=== PATIENT | female | born 1930 | race Caucasian/White ===

== ENCOUNTER → 2017-07-16 | Outpatient (CLI) | payer MEDICARE, OTHER ==
[2017-07-16] MEDS: REGADENOSON 0.4 MG/5 ML DISP.SYRIN. IV (09:45)
== END | disposition home or self-care (01) ==
LOC: NM 08:49
DX: I08.3 Combined rheumatic disorders of mitral, aortic and tricuspid valves (principal); I27.20 Pulmonary hypertension, unspecified; R07.89 Other chest pain; R60.0 Localized edema
CPT/HCPCS: 78452; 93017; 93306; 96374; 96375; 96376; A9500; J2785

== ENCOUNTER → 2018-04-07 | Outpatient (CLI) | payer MEDICARE, OTHER ==
[~2018-04-07] MED LIST: ALBUTEROL SULFATE 2.5 MG/3 ML NEBU. NEB ONE
--- NOTE | 2018-04-09 10:34 | RESP ---
DATE OF SERVICE: 04/07/2018 ATTENDING PHYSICIAN: Dr. Kirkpatrick. The patient's FVC was 2.18, which is 86% predicted, FEV1 1.2, which is 65% predicted. The FEV1/FVC ratio was reduced. There was excellent response to bronchodilators with 17% improvement in FVC and 14% improvement in FEV1. Lung volume showed increased total lung capacity of 160% predicted and increased residual volume. Diffusion capacity was increased. IMPRESSION: 1. Moderate obstructive airway disease with excellent response to bronchodilators. 2. Lung volumes consistent with air trapping and hyperinflation. 3. Increased diffusion capacity. JOSE MARTIN SOSA MD DR: ROBBIE/kristina JOB#: [id number] / [id number]
== END | disposition home or self-care (01) ==
LOC: PF 07:23
PROVIDERS: ATTEND Internal Medicine
DX: J44.9 Chronic obstructive pulmonary disease, unspecified (principal)
CPT/HCPCS: 94060; 94640; 94729; J7613

== ENCOUNTER → 2018-05-07 | Outpatient (CLI) | payer MEDICARE, OTHER ==
[~2018-05-07] MED LIST changes: -ALBUTEROL SULFATE 2.5 MG/3 ML NEBU. NEB ONE; +ASPI325T8 PO; +ATOR10TA60 PO; +CHOL2000 PO; +CLOP75TA PO; +GARL100T2 PO; +LEVO112T4 PO; +LISI2.5T PO; +METF500T3 PO; +MULT-658 PO
--- NOTE | 2018-05-07 14:37 | RAD ---
PET/CT imaging from the skull through the midthigh History: 1.1 cm lung nodule within the right lower lobe seen on recent chest CT. Comparison: Chest CT performed at [facility] dated March 31, 2018. Technique: PET examination was performed from the skull base to the proximal thighs after intravenous administration of 14.3 mCi Fluorine [address] scan was performed for the purposes of localization and attenuation, not for primary diagnosis. Blood glucose level at time of injection was 110 mg/dl. PQRS Compliance Statement: One or more of the following individualized dose reduction techniques were utilized for this examination: 1. Automated exposure control 2. Adjustment of the mA and/or kV according to patient size 3. Use of iterative reconstruction technique Findings: Head and neck: The thyroid gland is diffusely enlarged with a max SUV of 21.3. Right lobe extends all with to the submandibular region just posterior to the right submandibular salivary gland. The left lobe extends down into the anterior mediastinum and extends posteriorly into the posterior mediastinum and displaces the esophagus and trachea towards the right side. Normal physiologic activity is seen elsewhere. Chest: There is a 10 mm aorticopulmonary window lymph node which demonstrates max SUV of 4.7. There is superior left hilar hypermetabolic activity with a max SUV of 6.0. This area is difficult to evaluate without contrast. This is adjacent to the left upper lobe bronchus. There is right hilar activity with a maximum SUV is 3.9. This may be due to a lymph node here although it is difficult to identify without contrast. There is a 1.5 cm irregular nodule of the medial basal segment of the right lower lobe inferiorly which corresponds to the CT finding seen on the outside CT. No hypermetabolic activity is seen here. Maximum SUV is 1.8. Abdomen and pelvis: The urinary bladder is significantly distended. Diverticula of the urinary bladder evident. There is normal physiologic activity within both upper urinary tracts. The left upper urinary tract is dilated which may be due to the distended urinary bladder. Physiologic activity is seen within the third portion of the duodenum. There is diffuse physiologic activity within the bowel. More prominent segmental activity is seen involving the distal sigmoid colon and entire rectum with a maximum SUV of 11.5. Small distal abdominal aortic aneurysm is seen measuring 3.4 cm in greatest caliber. Musculoskeletal: No lytic process is seen. No hypermetabolic activity is evident. IMPRESSION: 1.5 cm irregular nodule of the medial basal segment of the right lower lobe is not hypermetabolic. Maximum SUV is 1.8. Therefore, this finding may be followed with a chest CT in 6 months to ensure stability. The thyroid gland is diffusely enlarged extending all with to the submandibular region on the right side and the mediastinum on the left side with a diffuse maximum SUV of 21.3. This may be seen with subacute thyroiditis or hyperthyroidism. This may be seen with anaplastic thyroid carcinoma but again this is diffusely involving the entire thyroid gland on both sides rather than a focal masslike activity. Correlation with thyroid function tests is recommended. This does displace the trachea and esophagus towards the right side. Hypermetabolic activity is seen within both laura and within a lymph node of the aorta pulmonary window. The clinical significance of this is uncertain at this point in time. Significantly enlarged urinary bladder. Left-sided hydronephrosis and hydroureter is seen most likely secondary to urinary bladder distention. Urinary bladder diverticuli are present. There is diffuse segmental hypermetabolic activity involving the distal sigmoid colon and the entire rectum with a maximum SUV of 11.5. This could be physiologic in nature but could be seen with a colitis as well. Clinical correlation is recommended. Small distal abdominal aortic aneurysm measuring 3.4 cm.
== END | disposition home or self-care (01) ==
LOC: PETSC 10:53
PROVIDERS: ATTEND Family Medicine
DX: R91.1 Solitary pulmonary nodule (principal); N13.39 Other hydronephrosis; N13.4 Hydroureter; I71.4 Abdominal aortic aneurysm, without rupture; N32.89 Other specified disorders of bladder; N32.3 Diverticulum of bladder
CPT/HCPCS: 78815; A9552

== ENCOUNTER 2018-06-29 06:47 | Outpatient (CLI) | payer MEDICARE, OTHER ==
[~2018-06-29] VITALS: Ht 167.6 cm; Wt 113.4 kg
[2018-06-29] VITALS (9 sets, daily range): BP systolic 127–190; BP diastolic 53–92
[2018-06-29] MEDS ORDERED: IODIXANOL 320 MG/ML 100 ML VIAL. ONE ×2 (07:40→09:27)
[2018-06-29] MEDS ORDERED: LIDOCAINE 1% PF 2 ML VIAL. ONE (07:40)
[2018-06-29 07:49] LABS: HEMATOCRIT 35.4 % (36.0-47.0); HEMOGLOBIN 11.6 g/dL (12.0-15.5); RED BLOOD COUNT 3.63 x10^6/uL (3.50-5.40); RED CELL DISTRIBUTION WIDTH 14.9 % (11.5-14.5)
[2018-06-29] MEDS ORDERED: METF500T3 PO (07:49)
[2018-06-29] MEDS ORDERED: GARL100T2 PO (07:49)
[2018-06-29] MEDS ORDERED: ATOR10TA60 PO (07:49)
[2018-06-29] MEDS ORDERED: CHOL2000 PO (07:49)
[2018-06-29] MEDS ORDERED: MULT-658 PO (07:49)
[2018-06-29] MEDS ORDERED: LISI2.5T PO (07:49)
[2018-06-29] MEDS ORDERED: ASPI325T8 PO (07:49)
[2018-06-29] MEDS ORDERED: LEVO112T4 PO (07:49)
[2018-06-29 07:53] LABS: CALCIUM 9.6 mg/dL (8.5-10.1); CREATININE 0.8 mg/dL (0.6-1.0); POTASSIUM 4.1 mmol/L (3.5-5.1)
[2018-06-29 07:59] LABS: PROTHROMBIN TIME PATIENT 13.1 SEC (11.7-14.0)
[2018-06-29] MEDS ORDERED: VERAPAMIL 5 MG/2 ML VIAL. ONE (08:41)
[2018-06-29] MEDS ORDERED: MIDAZOLAM HCL/PF 2 MG/2 ML VIAL. ONE (08:41)
[2018-06-29] MEDS ORDERED: HEPARIN for IV BOLUS 10,000 UNIT/10 ML VIAL. ONE (08:41)
[2018-06-29] MEDS ORDERED: fentaNYL PF VIAL 100 MCG/2 ML VIAL ONE (08:41)
[2018-06-29] MEDS ORDERED: NITROGLYCERIN 200 MCG/2 ML SYRINGE FOR CATH/VASC LAB. ONE (08:42)
[2018-06-29] MEDS ORDERED: BIVALIRUDIN 250 MG VIAL. IV ONE ×2 (09:17→09:45)
[2018-06-29] MEDS ORDERED: IV 1/2 NORMAL SALINE 1,000 ML IV SCH (09:42)
--- NOTE | 2018-06-29 09:42 | PDOC ---
MODERATE SEDATION ASSESSMENT RISKS/ALTERNATIVES Risks/Alternatives Risks and alternatives of this type of sedation and procedure discussed with: RISK/ALTERNATIVES: Patient H & P ON CHART H & P H & P on chart and reviewed for co-morbid conditions and appropriate labs. H&P ON CHART: Yes STATUS PREG STATUS ASSESSED: N/A MEDS/ALLERGIES REVIEWED Meds/Allergies Reviewed Medications and Allergies including time and route of recently administered narcotics and sedatives. MEDS/ALLERGIES REVIEWED: Yes ASA RATING ASA RATING: III AIRWAY ASSESSMENT Airway Assessment Airway patency, oral function limitations, presence of caps, crowns, dentures, partials, and ability to extend neck assessed. AIRWAY ASSESSMENT: Yes MALLAMPATI SCORE MALLAMPATI SCORE: II PRE-SEDATION ASSESSMENT PRE-SEDATION ASSESSMENT: Yes JAKE ROCHA MD Jun 29, 2018 09:42
[2018-06-29] MEDS ORDERED: NITROGLYCERIN SUBLINGUAL 0.4 MG BOTTLE OF 25. SL PRN (09:45)
[2018-06-29] MEDS ORDERED: HEPARIN for IV BOLUS 10,000 UNIT/10 ML VIAL. IV ONE (09:45)
[2018-06-29] MEDS ORDERED: fentaNYL PF VIAL 100 MCG/2 ML VIAL IV ONE (09:45)
[2018-06-29] MEDS ORDERED: ASPIRIN 325 MG TABLET PO ONE (09:45)
[2018-06-29] MEDS ORDERED: LIDOCAINE 1% PF 2 ML VIAL. INJ ONE (09:45)
[2018-06-29] MEDS ORDERED: NITROGLYCERIN 200 MCG/2 ML SYRINGE FOR CATH/VASC LAB. IART ONE (09:45)
[2018-06-29] MEDS ORDERED: HEPARIN for IV BOLUS 10,000 UNIT/10 ML VIAL. IART ONE (09:45)
[2018-06-29] MEDS ORDERED: ACETAMINOPHEN 325 MG TABLET. PO PRN (09:45)
[2018-06-29] MEDS ORDERED: VERAPAMIL 5 MG/2 ML VIAL. IART ONE (09:45)
[2018-06-29] MEDS ORDERED: CLOPIDOGREL BISULFATE 75 MG TABLET PO ONE (09:45)
[2018-06-29] MEDS ORDERED: IODIXANOL 320 MG/ML 100 ML VIAL. IART ONE (09:45)
[2018-06-29] MEDS ORDERED: MIDAZOLAM HCL/PF 2 MG/2 ML VIAL. IV ONE (09:45)
[2018-06-29] MEDS ORDERED: CLOPIDOGREL BISULFATE 75 MG TABLET ONE (09:48)
[2018-06-29] MEDS ORDERED: ASPIRIN 325 MG TABLET ONE (09:48)
--- NOTE | 2018-06-29 10:13 | CARD ---
MR#: [id number] Date of Study: 06/29/2018 Ordering Physician: JAKE ESPINOZA, Referring Physician: JAKE ESPINOZA, Tech: RT Bakari (Rhonda) SHERRILL APPROVED REPORT Technologist: RT Bakari (R) SHERRILL Nurse: Jessica Willett R.N. Procedure(s) performed: 1. Left heart catheterization, selective coronary angiography and left ventr iculography via right transradial approach 2. Instant wave free ratio (IFR) measurement to left anterior descending artery stenosis 3. Successful PCI/drug eluting stent placement to left anterior descending artery Fluoro time 12.8 minutes dose 94.0962 Gycm2 Vispipaque 174 cc's MOderate Sedation 54 minutes INDICATION The indication(s) include : Refractory dyspnea on exertion concerning for unstable angina. CSHA Clinical Frailty Scale [facility] Clinical Frailty Scale: Mildly Frail Heart Failure Heart Failure: No PROCEDURE NARRATIVE After explaining the risks, benefits and alternative options, informed consent was obtained from ace ent. Patient was brought to the cardiac Traffic Engineering Director and right wrist was prepped and draped in the usual fashion after confirming a positive modified Amador's test. Arterial access was obtained in the righ t radial artery and a 6 Cameroonian sheath was inserted. 6 Cameroonian Jonnie and 6 Cam[place]onian JL 3.5 catheters we re used to perform selective angiography of the right and left coronary arteries. 6 Cam[place]onian pigtail c atheter was used to perform left ventriculography. Since patient was found to have angiographically b orderline significant stenosis involving left anterior descending artery, a decision was made to asse ss the physiologic significance using Instant wave free ratio (IFR) measurement. The lesion was cross ed with [place] verrata PressureWire and IFR measurement was made which was significant at 0.79. FINDINGS 1. Hemodynamics: Left ventricular end-diastolic pressure of 14 mmHg. No pullback gradient across th e aortic valve. 2. Left ventriculography: Normal left ventricle systolic function with ejection fraction estimated at 65-70%. No significant mitral regurgitation seen. 3. Coronary angiography: a. The left main coronary artery arose from the left sinus of Valsalva, gave rise to the left anteri or descending and left circumflex arteries and did not show any significant stenosis. b. The left anterior descending artery showed 60-70% stenosis in the proximal segment that was physi ologically significant based on IFR measurement of 0.79. c. The left circumflex artery did not show any significant stenosis. d. The right coronary artery was a large and dominant vessel arising from the right sinus of Valsalv a that did not show any significant stenosis. INTERVENTION The left main coronary artery was engaged with 6 Cam[place]onian XB 3.5 guide catheter and the stenosis in the proximal segment was crossed with a 0.014 inch SCHAD water guidewire. This was successfully nichelle ana maria directly with a 3.0 x 15 mm Xience alpine drug-eluting stent. Follow-up angiography showed resolu tion of the stenosis to 0% with DAYNA-3 distal flow. Patient tolerated the procedure well. Hemostasis was achieved using TR band. There were no immediate complications. Conclusion 1. 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 2. Successful PCI/drug eluting stent placement to the left anterior descending artery. 3. Normal left ventricular systolic function with ejection fraction estimated at 65-70%. Recommendations 1. Aspirin 325 mg daily 2. Plavix 75 mg daily for at least 6 months and preferably one year 3. Cardiovascular risk factor modification Signed by : Jake Espinoza, Electronically Approved : 06/29/2018 10:13:03
[2018-06-29] MEDS ORDERED: CLOP75TA PO (11:15)
--- NOTE | 2018-06-29 12:57 | NUR ---
Discharge instructions reviewed with patient and family. Pt stated understanding. Pt ambulated and tolerated PO.Plavix prescription call to pt pharmacy
[2018-06-30] MEDS ORDERED: CLOPIDOGREL BISULFATE 75 MG TABLET PO SCH (08:00)
== END 2018-06-29 13:01 | disposition home or self-care (01) ==
LOC: CCL 06:47
PROVIDERS: ATTEND Internal Medicine Cardiovascular Disease
DX: I25.10 Atherosclerotic heart disease of native coronary artery without angina pectoris (principal); I10 Essential (primary) hypertension; E03.9 Hypothyroidism, unspecified; E11.9 Type 2 diabetes mellitus without complications; E78.5 Hyperlipidemia, unspecified; I71.4 Abdominal aortic aneurysm, without rupture; Z98.890 Other specified postprocedural states; Z79.84 Long term (current) use of oral hypoglycemic drugs; Z79.899 Other long term (current) drug therapy; Z79.82 Long term (current) use of aspirin; Z88.1 Allergy status to other antibiotic agents
CPT/HCPCS: 36415; 80048; 85027; 85610; 93458; 93571; 99152; 99153; C1713; C1725; C1769; C1887; C9600; J0583; J1644; J2250; J3010; J3490; Q9967; 92928

== ENCOUNTER → 2018-11-19 | Outpatient (CLI) | payer MEDICARE, OTHER ==
[2018-06-29 11:30] VITALS: BP 146/59
--- NOTE | 2018-11-20 11:42 | RAD ---
Examination: PET W CT SKULL TO MIDTHIGH History: Lung cancer restaging Comparison/Correlation: 04/29/2018 PET/CT exam, 07/21/2018 CT chest without contrast FINDINGS: Net dose 13.7 mCi F-18 FDG was administered intravenously for purposes of PET/CT exam. Blood glucose level at the time of radiotracer administration was undertaken mg/dL. Imaging was performed from the skull base to the proximal thighs. Hepatic reference uptake is SUV max of 3.6 . Uptake of radiotracer involving visualized head and upper neck is unremarkable. There is diffuse intense uptake corresponding to the thyroid gland similar to the prior exam with SUV max of up to 16. Previously described medial right basilar pulmonary nodule is no longer evident. There is no abnormal lymph node uptake identified. Previously described hilar and aorticopulmonary window foci of uptake are less evident in the interval. No intense uptake evident. Incidental note is made of significant coronary arterial calcification. Emphysematous involvement of the lung angeles noted. Calcified granuloma involves the left lateral costophrenic sulcus region. Uptake of radiotracer involving the abdomen and pelvis is unremarkable. Bilateral hydronephrosis is present. Hydroureter also evident bilaterally. Right urinary bladder diverticulum near the ureterovesical junction is present. No radiopaque collecting system calculi. No enlarged abdominal or pelvic lymph nodes. No bowel obstruction. Osteopenia noted. No suspicious bony uptake. IMPRESSION: Intense uptake diffusely involving the thyroid gland similar to the prior exam. Correlate for underlying hyperthyroidism or thyroiditis. Resolution of previously evident medial right basilar pulmonary nodule. Uptake involving the laura is decreased compared to previous exam and mild. No significant uptake of radiotracer involving the laura. No suspicious uptake of radiotracer at the aorticopulmonary window to correspond with the previous finding. PQRS Compliance Statement: One or more of the following individualized dose reduction techniques were utilized for this examination: 1. Automated exposure control 2. Adjustment of the mA and/or kV according to patient size 3. Use of iterative reconstruction technique Electronically signed by: Neto Hill MD (11/20/2018 11:39 AM) [facility]
== END | disposition home or self-care (01) ==
LOC: PETSC 08:40
PROVIDERS: ATTEND Family Medicine
DX: J43.9 Emphysema, unspecified (principal); J84.10 Pulmonary fibrosis, unspecified; I25.10 Atherosclerotic heart disease of native coronary artery without angina pectoris; N13.30 Unspecified hydronephrosis; N32.3 Diverticulum of bladder; M85.88 Other specified disorders of bone density and structure, other site
CPT/HCPCS: 78815; A9552

== ENCOUNTER → 2018-12-10 | Outpatient (CLI) | payer MEDICARE ==
[2018-06-29 11:30] VITALS: BP 146/59
[~2018-12-10] MED LIST changes: +IOHEXOL 240 MG/ML 50ML VIAL. PO ONE
--- NOTE | 2018-12-10 16:13 | RAD ---
CT ABD PEL W/ORAL CONTRST ONLY Indication: Blood in stool Technique: CT imaging was performed of the abdomen pelvis. Oral contrast was given. Multiplanar reconstruction images are submitted. No intravenous contrast was given. One or more of the following individualized dose reduction techniques were utilized for this examination: 1. Automated exposure control 2. Adjustment of the mA and/or kV according to patient size 3. Use of iterative reconstruction technique. Comparison: PET/CT November 19, 2018 Findings: There is coronary calcification. There are fat-containing Bochdalek hernias bilaterally. Accurate evaluation of the abdominal visceral organs is limited without intravenous contrast, no new obvious focal abnormality of the liver, spleen, or partially fat replaced pancreas. Gallbladder is present without obvious intraluminal abnormality by CT. There is atherosclerotic calcification of the abdominal aorta, again mild aneurysmal dilatation of the infrarenal distal abdominal aorta up to about 3.7 cm transverse. There is again fairly severe right and moderate to severe left hydronephrosis, also hydroureter bilaterally somewhat greater on the right. There is again right posterolateral urinary bladder diverticulum. No ureteral calculus is identified. Urinary bladder is distended. There is a tiny less than 0.2 cm mid to superior left renal calculus. Bowel is not significantly dilated. There is no free fluid or free air. Appendix is not clearly identified. There is multilevel lumbar facet degenerative change, very mild grade 1 anterior spondylolisthesis L3-4 and L4-5. There is bone demineralization. 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 IMPRESSION: 1. There is again fairly severe right greater than left hydroureteronephrosis, again distention of urinary bladder. There is a right posterolateral urinary bladder diverticulum. There is a tiny left renal calculus, no ureteral calculus. 2. There is distal infrarenal abdominal aortic aneurysm greatest axial dimension about 3.7 cm. Electronically signed by: Aleksandr Dalton MD (12/10/2018 4:10 PM) [facility]
== END | disposition home or self-care (01) ==
LOC: CT 07:42
PROVIDERS: ATTEND Family Medicine
DX: N13.2 Hydronephrosis with renal and ureteral calculous obstruction (principal); N32.3 Diverticulum of bladder; N32.89 Other specified disorders of bladder; I71.4 Abdominal aortic aneurysm, without rupture; M43.16 Spondylolisthesis, lumbar region; M81.0 Age-related osteoporosis without current pathological fracture; M16.0 Bilateral primary osteoarthritis of hip
CPT/HCPCS: 74176; Q9966

== ENCOUNTER 2018-12-20 09:48 | Emergency (ER) | payer MEDICARE ==
[~2018-12-20] VITALS: Ht 167.6 cm; Wt 109.3 kg
[~2018-12-20 09:48] MED LIST changes: -IOHEXOL 240 MG/ML 50ML VIAL. PO ONE
[2018-12-20] MEDS ORDERED: OXYMETAZOLINE 0.05% NASAL SPRAY 30ML BOTTLE. NS ONE (10:15)
--- NOTE | 2018-12-20 10:20 | PHYS DOC ---
Past Medical History Past Medical History: No Pertinent History Past Surgical History: Other Additional Past Surgical Histo: STENT Alcohol Use: None Drug Use: None Adult General Chief Complaint Chief Complaint: NOSEBLEED HPI HPI 88-year-old female presents to the emergency department with complaints of nosebleed from her left naris. She states she woke up this morning around 3:30 with a headache and then around 5:30 she developed a nosebleed from her left naris. She is on Plavix. Patient denies any nausea, vomiting, chest pain, shortness of breath. All other ROS negative unless documented in HPI Review of Systems Review of Systems See Above Current Medications Current Medications Current Medications Medications (Trade) Dose Ordered Sig/Poonam Start Time Stop Time Status Last Admin Dose Admin Oxymetazoline HCl (Afrin) 2 spray 1X ONCE 12/20/18 10:15 12/20/18 10:16 DC 12/20/18 10:30 2 SPRAY Silver Nitrate/ Potassium Nitrate 1 each 1X ONCE 12/20/18 10:30 12/20/18 10:31 DC 12/20/18 10:30 1 EACH Allergies Allergies Allergies Coded Allergies Type Severity Reaction Last Updated Verified vancomycin Allergy Intermediate 07/16/17 No bacitracin Allergy Mild 07/16/17 Yes neomycin Allergy Mild 07/16/17 Yes polymyxin B Allergy Mild 07/16/17 Yes Physical Exam Physical Exam See Above Constitutional: Well developed, well nourished, no acute distress, non-toxic appearance. [] HENT: Normocephalic, atraumatic, bilateral external ears normal, oropharynx moist, no oral exudates, nose with evidence of left septum mild ulceration. [] Eyes: PERRLA, EOMI, conjunctiva normal, no discharge. [] Cardiovascular:Heart rate regular rhythm, no murmur [] Lungs & Thorax: Bilateral breath sounds clear to auscultation [] Abdomen: Bowel sounds normal, soft, no tenderness, no masses, no pulsatile masses. [] Skin: Warm, dry, no erythema, no rash. [] Back: No tenderness, no CVA tenderness. [] Extremities: No tenderness, 2+ edema, chronic Neurologic: Alert and oriented X 3, no focal deficits noted. [] Psychologic: Affect normal, judgement normal, mood normal. [] Current Patient Data Vital Signs Vital Signs Date Time Temp Pulse Resp B/P (MAP) Pulse Ox O2 Delivery O2 Flow Rate FiO2 12/20/18 10:05 98.1 97 28 175/81 (112) 97 Room Air 98.1 Lab Values Laboratory Tests Test 12/20/18 10:54 White Blood Count 4.2 x10^3/uL (4.0-11.0) Red Blood Count 3.11 x10^6/uL (3.50-5.40) L Hemoglobin 10.3 g/dL (12.0-15.5) L Hematocrit 30.6 % (36.0-47.0) L Mean Corpuscular Volume 99 fL (79-100) Mean Corpuscular Hemoglobin 33 pg (25-35) Mean Corpuscular Hemoglobin Concent 34 g/dL (31-37) Red Cell Distribution Width 14.1 % (11.5-14.5) Platelet Count 113 x10^3/uL (140-400) L Neutrophils (%) (Auto) 66 % (31-73) Lymphocytes (%) (Auto) 21 % (24-48) L Monocytes (%) (Auto) 9 % (0-9) Eosinophils (%) (Auto) 4 % (0-3) H Basophils (%) (Auto) 0 % (0-3) Neutrophils # (Auto) 2.8 x10^3/uL (1.8-7.7) Lymphocytes # (Auto) 0.9 x10^3/uL (1.0-4.8) L Monocytes # (Auto) 0.4 x10^3/uL (0.0-1.1) Eosinophils # (Auto) 0.2 x10^3/uL (0.0-0.7) Basophils # (Auto) 0.0 x10^3/uL (0.0-0.2) Laboratory Tests 12/20/18 10:54 EKG EKG [] Radiology/Procedures Radiology/Procedures [] Course & Med Decision Making Course & Med Decision Making Pertinent Labs and Imaging studies reviewed. (See chart for details) []88-year-old female presents to the emergency department with complaints of nosebleed from her left naris. She states she woke up this morning around 3:30 with a headache and then around 5:30 she developed a nosebleed from her left naris. She is on Plavix. Patient denies any nausea, vomiting, chest pain, shortness of breath. Hemoglobin 10.3. Physical exam reveals evidence of bilateral areas of irritation on the septum. Initially Afrin used with addition of silver nitrate. Patient has no evidence of epistaxis at this time. Labs are reviewed and unremarkable. Plan for discharge. Discussed dc plans Patient understanding of return precautions Dragon Disclaimer Dragon Disclaimer This electronic medical record was generated, in whole or in part, using a voice recognition dictation system. Departure Departure Impression: Primary Impression: Epistaxis Disposition: HOME, SELF-CARE Condition: STABLE Referrals: CARISA JEFFERSON MD (PCP) Patient Instructions: Nose Drops, Saline, [id number], Nosebleed, Jugr-[id number] Additional Instructions: Recommend follow up with PCP 3 - 5 days Return to the ER with worsening symptoms, intractable pain, fever, altered mental status Tylenol as needed for pain Ok to resume plavix Consider saline nasal drops over the counter CHANTELLE GOMEZ MD Dec 20, 2018 10:20
[2018-12-20] MEDS ORDERED: SILVER NITRATE STICK TP ONE (10:30)
[2018-12-20 11:03] VITALS: BP 141/63
[2018-12-20 11:04] LABS: BASO % 0 % (0-3); EOS # 0.2 x10^3/uL (0.0-0.7); EOS % 4 % (0-3); HEMATOCRIT 30.6 % (36.0-47.0); HEMOGLOBIN 10.3 g/dL (12.0-15.5); LYMPH # 0.9 x10^3/uL (1.0-4.8); LYMPH % 21 % (24-48); MEAN CORPUSCULAR HEMOGLOBIN 33 pg (25-35); MEAN CORPUSCULAR HGB CONC 34 g/dL (31-37); MEAN CORPUSCULAR VOLUME 99 fL (79-100); MONO # 0.4 x10^3/uL (0.0-1.1); MONO % 9 % (0-9); NEUT # 2.8 x10^3/uL (1.8-7.7); NEUT % 66 % (31-73); PLATELET COUNT 113 x10^3/uL (140-400); RED BLOOD COUNT 3.11 x10^6/uL (3.50-5.40); RED CELL DISTRIBUTION WIDTH 14.1 % (11.5-14.5); WHITE BLOOD COUNT 4.2 x10^3/uL (4.0-11.0)
[2018-12-20 11:18] LABS: PROTHROMBIN TIME PATIENT 13.2 SEC (11.7-14.0)
== END 2018-12-20 11:37 | disposition home or self-care (01) ==
LOC: ER 09:48
DX: R04.0 Epistaxis (principal); R51 Headache
CPT/HCPCS: 36415; 85025; 85610; 99284

== ENCOUNTER → 2019-11-11 | Outpatient (CLI) | payer MEDICARE ==
[~2019-11-11] MED LIST changes: -LEVO112T4 PO; +LEVO112T49 PO; +REGADENOSON 0.4 MG/5 ML DISP.SYRIN. IV ONE
--- NOTE | 2019-11-11 15:18 | CARD ---
MR#: [id number] Date of Study: 11/11/2019 Ordering Physician: JAKE ROCHA, Referring Physician: JAKE ROCHA, Tech: Faith Win APPROVED REPORT EXAM: Two-dimensional and M-mode echocardiogram with Doppler and color Doppler. Other Information Quality : AverageHR: 83bpm INDICATION Cardiac Disease: CAD RISK FACTORS Hypertension Diabetes 2D DIMENSIONS RVDd2.9 (2.9-3.5cm)Left Atrium(2D)3.5 (1.6-4.0cm) IVSd1.1 (0.7-1.1cm)Aortic Root(2D)3.3 (2.0-3.7cm) LVDd5.0 (3.9-5.9cm)LVOT Diameter2.1 (1.8-2.4cm) PWd1.3 (0.7-1.1cm)LVDs3.4 (2.5-4.0cm) FS (%) 33.2 %SV74.0 ml Aortic Valve AoV Peak Gutierrez.345.7cm/sAoV VTI84.7cm AO Peak GR.47.8mmHgLVOT Peak Gutierrez.113.4cm/s LVOT VTI 27.48cmAO Mean GR.29mmHg JOLYNN (VMAX)0.98xd4HML (VTI)1.13cm2 Mitral Valve MV E Cobwjbiq064.3cm/sMV DECEL PLDO188xu MV A Qblwfwhj147.9cm/sMV E Mean Gr.5mmHg MV SRO25viL/A Ratio0.8 MVA (PHT)4.95cm2 TDI E/Lateral E'18.7E/Medial E'15.2 Pulmonary Valve PV Peak Hlosivij595.0cm/sPV Peak Grad.5mmHg Tricuspid Valve TR P. Odnlhffs284go/sRAP XIAWECMN4aaSw TR Peak Gr.43hvAfXPZL95vjIl Pulmonary Vein S1 Xrqutobo82.1cm/sD2 Oybxegmw15.1cm/s LEFT VENTRICLE The left ventricle is normal size. There is mild concentric left ventricular hypertrophy. The left ve ntricular systolic function is normal and the ejection fraction is within normal range. The Ejection Fraction is 50-55%. There is normal LV segmental wall motion. Transmitral Doppler flow pattern is Gra de I-abnormal relaxation pattern. RIGHT VENTRICLE The right ventricle is normal size. There is normal right ventricular wall thickness. The right ventr icular systolic function is normal. ATRIA The left atrium is mildly dilated. The right atrium size is normal. The interatrial septum is intact with no evidence for an atrial septal defect or patent foramen ovale as noted on 2-D or Doppler imagi ng. AORTIC VALVE The aortic valve is not well visualized. Doppler and Color Flow revealed trace aortic regurgitation. Calculated aortic valve area is 1.18 cm2 with maximum pressure gradient of 57 mmHg and mean pressure gradient of 36 mmHg. 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 MITRAL VALVE Mitral annular calcification is mild to moderate. There is no evidence of mitral valve prolapse. The mitral valve mean gradient is 5.5 mmHg. Doppler and Color-flow revealed trace mitral regurgitation. TRICUSPID VALVE The tricuspid valve is normal in structure and function. Doppler and Color Flow revealed trace to mil d tricuspid regurgitation with an estimated PAP 41 mmHg. There is no tricuspid valve stenosis. PULMONIC VALVE The pulmonic valve is not well visualized. Doppler and Color Flow revealed no pulmonic valvular regur gitation. GREAT VESSELS The aortic root is normal in size. The IVC is dilated. PERICARDIAL EFFUSION There is no evidence of significant pericardial effusion. Critical Notification Critical Value: No <Conclusion> The left ventricle is normal size. The left ventricular systolic function is normal and the ejection fraction is within normal range. The Ejection Fraction is 50-55%. There is mild concentric left ventricular hypertrophy. Doppler and Color Flow revealed trace aortic regurgitation. Calculated aortic valve area is 1.18 cm2 with maximum pressure gradient of 57 mmHg and mean pressure gradient of 36 mmHg. 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 Doppler and Color-flow revealed trace mitral regurgitation. Doppler and Color Flow revealed trace to mild tricuspid regurgitation with an estimated PAP 41 mmHg. Signed by : eSan Nolen MD Electronically Approved : 11/11/2019 15:18:07
--- NOTE | 2019-11-11 15:46 | RAD ---
MR#: [id number] Date of Study: 11/11/2019 Ordering Physician: JAKE ROCHA Referring Physician: LEBRON MARQUES Tech: Rashid Anaya, RT (R) (N) APPROVED REPORT Test Type: Pharmacological Stress Nurse/Tech: Aislinn Reyna RN Test Indications: CAD Cardiac History: HTN, Heart Caths x3, See EMR. Medications: See EMR. Medical History: DM, See EMR. Resting ECG: SR Resting Heart Rate: 86 bpm Resting Blood Pressure: 167/75mmHg Pretest Chest Pain: No chest pain Nurse/Tech Notes Lungs CTA, Heart tones regular with murmur ascultated. Consent: The procedure was explained to the patient in lay terms. Informed consent was witnessed. Tima eout was entered into [employer]. History and Stress Test performed by LIBAN Isbell Pharm. Details Pharmacologic stress testing was performed using 0.4mg per 5ml of regadenoson given intravenously ove r 7-10 seconds. Stress Symptoms No chest pain or symptoms. POST EXERCISE Reason for Termination: Infusion complete Max HR: 108 bpm Max Blood Pressure: 162/66mmHg Blood Pressure response to exercise: Normal blood pressure response during stress. Heart Rate response to exercise: WNL Chest Pain: No. Arrhythmia: Yes. few PVCs. ST Change: No. INTERPRETATION Stress EKG Conclusion: The resting EKG shows a sinus rhythm, left ventricular hypertrophy and nonspec ific ST-T wave changes. The stress EKG showed no significant changes from baseline. No EKG evidence of stress-induced ischemia. Imaging Protocol IMAGE PROTOCOL: Rest Tc-99m/stress Tc-99m 1 day Rest: Stress: Viability: Radiopharm.Tc99m IamxxbfkhAs21w Sestamibi Zgef28rPz 33mCi Duration 15min. 15min. Img Date 11/11/2019 11/11/2019 Inj-Img [id number]. 60min. Rest Admin Site:IV - Left ForearmAdministrator:LIBAN Isbell Stress Admin Site: IV - Left ForearmAdministrator: LIBAN Isbell STRESS DATA End Diast. Vol.109.0mlAv. Heart Rate86.0bpm End Syst. Vol.24.0mlCO Index BSA0.0L/min Myocardial Qbco334.0gEject. Slffbcfh02.0% Stress Rates Pk. Fill Rate4.35EDV/secLVtime Pk. Fill 179.17msec Pk. Empty Rate4.75ESV/secLVtime Pk. Qgppb854.27msec 1/3 Pk. Fill0.84EDV/sec Stress Scores Regional WT0.00Summed WT2.00 Regional WM0.00Summed WM0.00 LV Perfusion The stress scans showed no significant defects. The rest scans showed no significant defects. Nuclear imaging shows no reversible ischemia or infarct. Wall Motion Left ventricular systolic function is normal with no regional wall motion abnormalities and an ejecti on fraction of greater than 70%. LV Perf. Quant 17 Seg. SSS9.00 17 Seg. SRS3.00 17 Seg. SDS6.00 Stress Defect Extent (% LAD)1.30Rest Defect Extent (% LAD)0.00Rev. Defect Extent (% LAD)1.30 Stress Defect Extent (% LCX) 25.00Rest Defect Extent (% LCX)5.00Rev. Defect Extent (% LCX)18.80 Stress Defect Extent (% RCA)12.20Rest Defect Extent (% RCA)0.00Rev. Defect Extent (% RCA)0.00 Stress Defect Extent (% ADA)12.60Rest Defect Extent (% ADA)1.30Rev. Defect Extent (% ADA)6.50 Conclusion 1. No EKG evidence of stress-induced ischemia. 2. Nuclear imaging shows no reversible ischemia or infarct. 3. Normal left ventricular systolic function with an ejection fraction of greater than 70%. 4. Low risk Lexiscan nuclear stress test. Signed by : Sean Nolen MD Electronically Approved : 11/11/2019 15:45:52
== END | disposition home or self-care (01) ==
LOC: NM 09:53
PROVIDERS: ATTEND Internal Medicine Cardiovascular Disease
DX: I08.1 Rheumatic disorders of both mitral and tricuspid valves (principal); I10 Essential (primary) hypertension; I25.10 Atherosclerotic heart disease of native coronary artery without angina pectoris; Z95.9 Presence of cardiac and vascular implant and graft, unspecified
CPT/HCPCS: 78452; 93017; 93306; A9500; J2785

== ENCOUNTER → 2020-11-07 | Outpatient (CLI) | payer MEDICARE ==
[~2020-11-07] MED LIST changes: -LISI2.5T PO; +LISI2.5T12 PO; -REGADENOSON 0.4 MG/5 ML DISP.SYRIN. IV ONE
--- NOTE | 2020-11-07 10:56 | CARD ---
MR#: [id number] Date of Study: 11/07/2020 Ordering Physician: JAKE ROCHA, Referring Physician: JAKE ROCHA Tech: Rosamaria Sampson [facility] APPROVED REPORT EXAM: Two-dimensional and M-mode echocardiogram with Doppler and color Doppler. Other Information Quality : AverageHR: 71bpm Rhythm : NSR INDICATION Dyspnea RISK FACTORS Hypertension Obesity Hyperlipidemia 2D DIMENSIONS RVDd3.2 (2.9-3.5cm)Left Atrium(2D)3.4 (1.6-4.0cm) IVSd1.4 (0.7-1.1cm)Aortic Root(2D)3.2 (2.0-3.7cm) LVDd5.1 (3.9-5.9cm)LVOT Diameter2.1 (1.8-2.4cm) PWd1.4 (0.7-1.1cm)LVDs2.6 (2.5-4.0cm) FS (%) 49.9 %SV100.6 ml LVEF(%)81.0 (>50%) Aortic Valve AoV Peak Gutierrez.436.4cm/sAoV SQF979.4cm AO Peak GR.76.2mmHgLVOT Peak Gutierrez.124.3cm/s AO Mean GR.43mmHg Mitral Valve MV E Oooblocj054.0cm/sMV E Peak Gr.9mmHg MV DECEL [id number] A Ymytwleg186.9cm/s MV E Mean Gr.4mmHgE/A Ratio0.8 Pulmonary Valve PV Peak Rfyyfpep505.2cm/s Tricuspid Valve TR P. Rhndlmfm447ox/sTR Peak Gr.34mmHg LEFT VENTRICLE The left ventricle is normal size. There is mild concentric left ventricular hypertrophy. The left ve ntricular systolic function is normal. Estimated ejection fraction 65%. There is normal LV segmental wall motion. Transmitral Doppler flow pattern is Grade I-abnormal relaxation pattern. RIGHT VENTRICLE The right ventricle is normal size. The right ventricle is mildly hypertrophied. The right ventricula r systolic function is normal. ATRIA The left atrium is mildly dilated. The right atrium size is normal. The interatrial septum is intact with no evidence for an atrial septal defect or patent foramen ovale as noted on 2-D or Doppler imagi ng. AORTIC VALVE The aortic valve is severely sclerotic. Doppler and Color Flow revealed no significant aortic regurgi tation. There is moderate to severe valvular aortic stenosis. MITRAL VALVE The mitral valve is moderately thickened but opens adequately. There is no evidence of mitral valve p rolapse. There is no mitral valve stenosis. Doppler and Color-flow revealed mild mitral regurgitation . TRICUSPID VALVE The tricuspid valve is normal in structure and function. Doppler and Color Flow revealed mild tricusp id regurgitation. Estimated PAP 50 mmHg. There is no tricuspid valve stenosis. GREAT VESSELS The aortic root is normal in size. The ascending aorta is normal in size. The IVC is dilated and winter apses <50% with inspiration. PERICARDIAL EFFUSION There is no evidence of significant pericardial effusion. Critical Notification Critical Value: No <Conclusion> The left ventricular systolic function is normal. Estimated ejection fraction 65%. There is normal LV segmental wall motion. Transmitral Doppler flow pattern is Grade I-abnormal relaxation pattern. Moderate to severe valvular aortic stenosis with mean gradient 43 mmHg. Mild mitral regurgitation. Mild tricuspid regurgitation. Estimated PAP 50 mmHg. There is no evidence of significant pericardial effusion. Signed by : Jake Rocha, Electronically Approved : 11/07/2020 10:55:15
== END ==
LOC: ECHO 07:35
PROVIDERS: ATTEND Internal Medicine Cardiovascular Disease
DX: I08.3 Combined rheumatic disorders of mitral, aortic and tricuspid valves (principal); I25.10 Atherosclerotic heart disease of native coronary artery without angina pectoris
CPT/HCPCS: 93306

== ENCOUNTER → 2021-07-02 | Outpatient (CLI) | payer MEDICARE ==
[~2021-07-02] MED LIST changes: +REGADENOSON 0.4 MG/5 ML DISP.SYRIN. IV ONE
--- NOTE | 2021-07-02 16:27 | RAD ---
MR#: [id number] Date of Study: 07/02/2021 Ordering Physician: JAKE ROCHA, Referring Physician: LEBRON MARQUES Tech: RT Lopez (R) (N) APPROVED REPORT Test Type: Pharmacological Stress Nurse/Tech: Kiet Yepez RN Test Indications: CAD Cardiac History: stent 2020, HTN, DM Medications: See Electronic Medical Record Medical History: See Electronic Medical Record Resting ECG: SR Resting Heart Rate: 82 bpm Resting Blood Pressure: 208/91mmHg Pretest Chest Pain: None Nurse/Tech Notes Lungs CTA, Murmur noted. Pt blood pressure elevated. Daughter explained that the patient is extremely anxious and her blood pressure is normally controled SBP 120's. Pt will resume home medications at t ermination of exam Consent: The procedure was explained to the patient in lay terms. Informed consent was witnessed. Tima eout was entered into [employer]. History and Stress Test performed by RT Ciera Garces) (N) Pharm. Details Pharmacologic stress testing was performed using 0.4mg per 5ml of regadenoson given intravenously ove r 7-10 seconds. Stress Symptoms No chest pain or symptoms. POST EXERCISE Reason for Termination: Infusion complete Max HR: 112 bpm Max Blood Pressure: 109/71mmHg Blood Pressure response to exercise: Normal blood pressure response during stress. Heart Rate response to exercise: normal response Chest Pain: No. Arrhythmia: Yes. PVC ST Change: No. INTERPRETATION Stress EKG Conclusion: Baseline EKG showed sinus rhythm. No ischemic changes at peak stress. No arr hythmias. Imaging Protocol IMAGE PROTOCOL: Rest Tc-99m/stress Tc-99m 1 day Rest: Stress: Viability: Radiopharm.Tc99m BdzgrygxgUg20l Sestamibi Dose10.4mCi 33mCi Duration 15min. 15min. Img Date 07/02/2021 07/02/2021 Inj-Img Fioj28fmk. 60min. Rest Admin Site:IV - Left WristAdministrator:RT Ciera Garces)(N) Stress Admin Site: IV - Left WristAdministrator: Helen Can, RT (R)(N) STRESS DATA End Diast. Vol.138.0mlAv. Heart Rate84.0bpm End Syst. Vol.38.0mlCO Index BSA0.0L/min Myocardial Fzgt064.0gEject. Grdkviqi51.0% Stress Rates Pk. Fill Rate4.02EDV/secLVtime Pk. Fill 193.69msec Pk. Empty Rate4.40ESV/secLVtime Pk. Vozlk856.58msec 03/12 Pk. Fill1.57EDV/sec Stress Scores Regional WT1.00Summed WT4.00 Regional WM0.00Summed WM0.00 Study quality was good. Left Ventricular size was Normal at Rest and Stress. Lung uptake was . Left Ventricular ejection fraction is 72%. The rest and stress images show normal perfusion, normal contraction and thickening. LV Perf. Quant 17 Seg. SSS6.00 17 Seg. SRS0.00 17 Seg. SDS6.00 Stress Defect Extent (% LAD)10.60Rest Defect Extent (% LAD)0.00Rev. Defect Extent (% LAD)9.40 Stress Defect Extent (% LCX) 47.50Rest Defect Extent (% LCX)0.00Rev. Defect Extent (% LCX)47.50 Stress Defect Extent (% RCA)0.00Rest Defect Extent (% RCA)0.00Rev. Defect Extent (% RCA)0.00 Stress Defect Extent (% ADA)13.50Rest Defect Extent (% ADA)0.00Rev. Defect Extent (% ADA)13.00 Conclusion 1. Regadenoson cardioisotope stress test did not show any evidence of ischemia or infarct. 2. Normal left ventricular systolic function with ejection fraction calculated at 72%. 3. Low risk for cardiac events. Signed by : Jake Rocha, Electronically Approved : 07/02/2021 16:27:12
== END ==
LOC: NM 08:36
PROVIDERS: ATTEND Internal Medicine Cardiovascular Disease
DX: I25.10 Atherosclerotic heart disease of native coronary artery without angina pectoris (principal)
CPT/HCPCS: 78452; 93017; A9500; J2785